=== PATIENT | male | born 1945 | race Caucasian/White ===

== ENCOUNTER 2020-05-15 04:24 | Emergency (ER) | payer MEDICARE, MEDICAID, SELFPAY ==
--- NOTE | ~2020-05-15 | XR_ITS ---
EXAMINATION: XR chest 1V portable DATE: 05/15/2020 05:02 INDICATION: Chest pain. TECHNIQUE: A single frontal view of the chest was obtained. COMPARISON: Chest 2 views 11/02/2016 FINDINGS: The patient is rotated to his left. A calcified right lung nodule and calcified right hilar lymph nodes are consistent with old granulomatous disease. No pleural effusion or pneumothorax. The heart size is normal. There is a prominent left paracardial fat pad. There is a left chest wall pacer with leads in the right atrium and right ventricle. IMPRESSION: 1. No acute cardiopulmonary disease. Reviewed, dictated and finalized at location A.
--- NOTE | ~2020-05-15 | CT_ITS ---
EXAMINATION: CT brain wo con DATE: 05/15/2020 05:17 INDICATION: Headache. TECHNIQUE: Computed tomography (CT) of the head was performed without intravenous contrast. The mA wa s adjusted according to patient size. Iterative reconstruction technique was employed. The dose-lengt h product was 681.00 mGy-cm. COMPARISON: Head CT 11/02/2016 FINDINGS: There is diffuse brain volume loss with a frontal and temporal lobe predominance. There are scattered areas of low attenuation in the cerebral white matter. There is no intracranial hemorrhage , acute infarction, or abnormal intracranial mass lesion. The ventricles are normal in size. There is mild mucosal thickening in the ethmoid sinuses. The mastoid air cells are normal. There are likely c hanges of ocular lens replacement surgeries. IMPRESSION: 1. Stable mild nonspecific cerebral white matter disease, which likely represents chronic small vesse l ischemic disease. Reviewed, dictated and finalized at location A. IMPRESSION: 1. Stable mild nonspecific cerebral white matter disease, which likely represen ts chronic small vessel ischemic disease.
[2020-05-15 04:25] VITALS: BP 158/88; PULSE 69; RESP 18; TEMP 36.8; O2SAT 100
[2020-05-15 04:33] VITALS: BP 158/88; PULSE 70; RESP 21; TEMP 36.8; O2SAT 100
--- NOTE | 2020-05-15 04:34 | PC.NURSE ---
Pt presents to ED with complaints of headache that has been persistent since yesterday morning. Pt states it feels like my head is going to burst . Pt denies being tx for pain lpta. Pt is alert and oriented x4 and vitals are stable. Pt also complains of excessive belching that onset approx one year ago. Pt alert and oriented x4 and breathing is unlabored and even. Pt advised to press call button for assistance.
--- NOTE | 2020-05-15 05:11 | ED.HA ---
HPI - Headache General Chief Complaint: Headache Stated Complaint: headache Time Seen by Provider: 05/15/20 04:51 Source: patient and EMS Mode of arrival: EMS Limitations: no limitations History of Present Illness HPI Narrative: Patient is a 74-year-old male complaining of a headache, generalized, throbbing, 9 out of 10, started yesterday. Patient denies any fever or chills. Patient denies any speech or visual disturbance, weakness, numbness, neck pain or stiffness. Related Data Allergies Allergy/AdvReac Type Severity Reaction Status Date / Time sulfur dioxide Allergy Intermediate Verified 01/16/12 10:54 Sulfa (Sulfonamide Allergy Unknown Verified 04/27/12 11:21 Antibiotics) Review of Systems Review of Systems: All systems reviewed & are unremarkable except as noted in HPI and below Constitutional: Constitutional: Denies body ache(s), Denies chills, Denies excessive sweating, Denies fatigue, Denies fever(s), Denies headache(s), Denies lethargy, Denies malaise, Denies weakness and Denies weight loss Eyes: Eyes: Denies blurry vision, Denies change in vision and Denies loss of vision ENT: Denies dizziness, Denies ear discharge, Denies headache(s), Denies lip swelling, Denies epistaxis, Denies nasal congestion, Denies neck pain, Denies throat swelling and Denies tongue swelling Cardiovascular: Cardiovascular: Denies chest pain, Denies chest pain at rest, Denies chest pain with activity, Denies diaphoresis, Denies rapid heart rate, Denies edema, Denies irregular heart rhythm, Denies lightheadedness, Denies palpitations, Denies dyspnea and Denies dyspnea on exertion Respiratory: Respiratory: Denies chest congestion, Denies cough, Denies hemoptysis, Denies dyspnea and Denies dyspnea on exertion Gastrointestinal: Gastrointestinal: Denies abdominal pain, Denies melena, Denies hematochezia, Denies diarrhea, Denies nausea, Denies vomiting and Denies hematemesis Musculoskeletal: Musculoskeletal: Denies abnormal gait, Denies deformity, Denies joint swelling, Denies limited range of motion, Denies neck pain and Denies numbness Neurologic: Denies Abnormal speech present, Denies abnormal gait, Denies confusion, Denies dizziness, Denies focal weakness, Denies loss of vision, Denies numbness, Denies Other visual disturbances, Denies Sensory deficit (Neuro) and Denies weakness Psychiatric: Psychiatric: Denies confusion, Denies depression, Denies auditory hallucinations, Denies homicidal ideation and Denies suicidal ideation Endocrine: Endocrine: Denies cold intolerance, Denies excessive sweating, Denies fatigue, Denies heat intolerance and Denies palpitations Hematologic/Lymphatic: Hematologic/Lymphatic: Denies easy bleeding and Denies easy bruising Allergic/Immunologic: Allergic/Immunologic: Denies lip swelling, Denies throat swelling and Denies tongue swelling PMFSH Family History Family History Mother Family history of malignant neoplasm Hypertension Father Family history of malignant neoplasm of brain Depression Hypertension Sibling Asthma Family history of malignant neoplasm Social History Social History Smoking status: Never smoker Second hand tobacco smoke exposure: No Alcohol intake: never Exam Const: General: cooperative, comfortable, no acute distress, well developed, alert and awake; No confusion Nutritional Appearance: obese Orientation/consciousness: oriented to person, oriented to place, oriented to time, patient oriented x3 and No confusion Limitations: no limitations HENMT: Head: normal to inspection, normocephalic and atraumatic Ears: hearing grossly normal bilaterally, TM normal on the right and TM normal on the left General nose exam: Normal external nose present, Normal nares present and No nasal discharge present Face and sinus: normal facial exam Mouth: Yes Normal oral and palatal
[2020-05-15 05:30] LABS: Basophils Percent Auto 0.3 % (0.2-1.2); Eosinophils Absolute Auto 0.1 K/mm3 (0-0.3); Eosinophils Percent Auto 0.5 % (0-4.4); Hematocrit 44.4 % (42.0-52.0); Hemoglobin 14.5 g/dL (14.0-18.0); Immature Granulocyte Absolute 0.04 K/mm3 (0.00-0.031); Immature Granulocyte Percent A 0.4 % (0-0.5); Lymphocytes Percent Auto 12.6 % (18.3-44.2); Mean Corpuscular HGB Conc 32.7 g/dl (32-36); Mean Corpuscular Hemoglobin 27.8 pg (26-34); Mean Corpuscular Volume 85.1 fl (80-100); Mean Platelet Volume 9.4 fl (7.4-10.4); Monocytes Absolute Auto 0.6 K/mm3 (0.1-0.6); Monocytes Percent Auto 6.2 % (2.6-8.5); Neutrophils Absolute Auto 7.6 K/mm3 (1.3-6.7); Platelet Count Result 159 k/mm3 (150-375); Red Blood Count 5.22 M/mm3 (4.6-6.20); Red Cell Distribution Width 16.6 % (11.5-14.5); White Blood Count 9.5 K/mm3 (4.5-10.0)
[2020-05-15 05:46] LABS: Alanine Aminotransferase 10 U/L (4-50); Albumin Level 3.5 g/dL (3.5-5.1); Alkaline Phosphatase 57 U/L (38-126); Anion Gap 2 mmol/L (8-16); Aspartate Amino Transferase 15 U/L (17-59); Bilirubin,Total 0.5 mg/dL (0.2-1.3); Blood Urea Nitrogen 17 mg/dL (9-20); Calcium 9.2 mg/dL (8.4-10.2); Carbon Dioxide 32 mmol/L (22-30); Chloride 100 mmol/L (98-107); Estimated CRCL calculation 76 ml/min; Estimated Glomerular Filt Rate > 60; Glucose 124 mg/dL (75-110); Potassium 3.9 mmol/L (3.4-5.0); Sodium 134 mmol/L (137-145)
[2020-05-15 05:48] LABS: INR 0.9; Partial Thromboplastin Time 24.3 SECONDS (22.3-36.8); Prothrombin Time 12.7 Seconds (11.1-14.7)
[2020-05-15 05:58] LABS: Troponin I < 0.012 ng/mL (0.000-0.034)
--- NOTE | 2020-05-15 07:07 | PC.NURSE ---
This RN and Tracy RN assumed care at this time.
[2020-05-15] MEDS: diazePAM (*CRX) 5 MG TABLET PO (07:11)
--- NOTE | 2020-05-15 07:31 | PC.NURSE ---
made contact with [employer] and [facility]. med poth accepted with an eta of [phone]. Made contact with [facility] to transfer patient back to [facility] center. eta [phone]. i did call [employer] and cancelled transportation
--- NOTE | 2020-05-15 07:54 | PC.NURSE ---
[facility] has arrived
[2020-05-15 08:00] VITALS: BP 157/85; PULSE 70; RESP 18; O2SAT 99
== END 2020-05-15 08:11 ==
PROVIDERS: Emergency Provider Emergency Medicine; PCP Family Medicine
DX: R51.9 Headache, unspecified (principal); R07.9 Chest pain, unspecified
CPT/HCPCS: 36415; 70450; 71045; 80053; 84484; 85025; 85610; 85730; 99284; A9270

== ENCOUNTER 2020-08-27 10:30 | Inpatient (IN) | payer MEDICARE, MEDICAID, SELFPAY ==
[2020-08-27] VITALS (14 sets, daily range): BP systolic 127–153; BP diastolic 54–93; PULSE 66–85; RESP 16–22; TEMP 36.3–36.9; O2SAT 97–100; BMI 54.5
--- NOTE | ~2020-08-27 | CT_ITS ---
EXAMINATION: CTA chest PE protocol DATE: 08/27/2020 14:17 INDICATION: Shortness of breath and lower limb swelling TECHNIQUE: Computed tomography angiography (CTA) of the chest was performed with 100 mL Omnipaque-350 intravenous contrast timed to evaluate the pulmonary arteries. Coronal maximum intensity projection 3D-reconstructions were created by the technologist. The dose-length product (DLP) was 1108.00 mGy-cm . Automated exposure control and iterative reconstruction technique were employed. COMPARISON: None. FINDINGS: The pulmonary arteries are well-opacified. Sensitivity for embolism is limited by respirato ry motion artifact. No central pulmonary embolus is identified. Cardiomegaly is noted. There is mild dependent atelectasis. A 6 mm nodule is present in the left upper lobe. There is a calcified nodule o f the right upper lobe, consistent with old granulomatous disease. There are no pathologically enlarg ed thoracic lymph nodes. Bilateral gynecomastia is noted. Punctate calcifications in an otherwise nor mal spleen likely represent healed granulomatous disease. The gallbladder is surgically absent. There is a 4.6 cm mass in the head of the pancreas. There are innumerable low-attenuation lesions of the l iver. There are surgical changes of the stomach. IMPRESSION: 1. No central pulmonary embolus identified, sensitivity for subsegmental emboli limited by respirator y motion artifact. 2. Cardiomegaly. 3. Pancreatic head mass with multiple liver lesions, most consistent with pancreatic adenocarcinoma a nd liver metastases. 4. 6 mm nodule of the left upper lobe which may be benign or metastatic. Reviewed, dictated and finalized at location A. IMPRESSION: 1. No central pulmonary embolus identified, sensitivity for subsegmental emboli limited by respiratory motion artifact. 2. Cardiomegaly. 3. Pancreatic head mass with multiple liver lesions, most consistent with pancr eatic adenocarcinoma and liver metastases. 4. 6 mm nodule of the left upper lobe which may be benign or metastatic.
--- NOTE | ~2020-08-27 | XR_ITS ---
EXAMINATION: XR chest 1V portable INDICATION: Shortness of breath TECHNIQUE: Portable AP chest at 1118 hours COMPARISON: 05/15/2020 FINDINGS: The lung volumes are low. The lungs are free of acute opacities. There is no pleural effusi on or pneumothorax. The heart size is normal. A dual-lead cardiac pacemaker of the left chest wall en ds with leads in expected locations. 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 IMPRESSION: 1. No acute cardiopulmonary abnormality. Reviewed, dictated and finalized at location A.
--- NOTE | ~2020-08-27 | CT_ITS ---
EXAMINATION: CT abdomen pelvis w con DATE: 08/30/2020 11:30 INDICATION: Abdominal pain following liver biopsy TECHNIQUE: Computed tomography (CT) of the abdomen and pelvis was performed with 100 cc Omnipaque 350 intravenous contrast. Automated exposure control and iterative reconstruction technique were employe d. Exam dose: 1668.56 mGy-cm total exam DLP. COMPARISON: 08/30/2020 ultrasound-guided liver biopsy FINDINGS: No pneumothorax. Lung bases are clear of infiltrate or consolidation. Cardiomegaly. Right atrial and right ventricular pacemaker leads. No pericardial or pleural effusion. The liver is studded with ill-defined masses consistent with extensive metastatic disease. Multiple calcified splenic granulomas. Postoperative change of the stomach Status post cholecystectomy. Possible 2.8 cm right adrenal myelolipoma. Up to approximately 4.3 cm pancreatic head mass is seen pancreatic carcinoma. Nonspecific exophytic 1.6 cm upper pole left renal hypoattenuating lesion and several additional up t o 2 cm hypoattenuating lesions of the lower pole of the left kidney. At least one similar approximate ly 11 mm hypoattenuating lesion of the lower right kidney. Normal caliber of the abdominal aorta. No abdominal aortic aneurysm. No intraperitoneal or retroperitoneal or pelvic mass lesion or adenopathy or ascites. The urinary bladder is unremarkable. Moderate prominence of the prostate gland. No bowel obstruction or intraperitoneal free air is detected. Old healed left rib fractures. Diffuse osteopenia. Degenerative changes of the thoracic and lumbar sp ine including diffuse idiopathic skeletal hyperostosis of the thoracic spine and severe degenerative disc disease at L4-5 and L5-S1. IMPRESSION: Pancreatic head mass suggesting pancreatic cancer The liver is studded with metastatic lesions Nonspecific bilateral renal masses Reviewed, dictated and finalized at Location A. Reviewed, dictated and finalized at location A.
--- NOTE | ~2020-08-27 | US_ITS ---
EXAMINATION: US biopsy liver DATE: 08/30/2020 11:40 INDICATION: Multiple liver lesions and massive pancreas concerning for metastatic pancreas cancer. TECHNIQUE: The procedure including the risks and benefits was discussed with the patient. Risks discu ssed included bleeding and infection. The patient understood the risks and agreed to proceed. The sk in overlying the caudal tip of the right hepatic lobe was prepped and draped in usual sterile fashion . Anesthetic was administered with 1% lidocaine subcutaneously. An 18 gauge core biopsy needle was advanced under continuous ultrasound observation to one of the lesion of interest. 4 core biopsy spe cimens were obtained. The needle was removed and the entry site was cleaned and dressed. Post proced ure ultrasound demonstrated no hemorrhage. Approximately 10 minutes following the procedure the patie nt complained of extreme right upper quadrant pain rated 10/10. Returned to the patient who appeared agitated. Patient was saturating 98% oxygenation on room air. Repeat ultrasound imaging at that time demonstrated no evident abdominal wall or perihepatic hematoma. I completed the patient to the [facility] where the contrast enhanced CT was obtained which similarly demonstrated no evident acute abnorm ality but which be dictated separately. The patient displayed was returned to the floor for pain maximilian gemlorrie. FINDINGS: Ultrasound images demonstrate patchy needle advanced into an approximately 1.5 similar hypo echoic nodule at the caudal aspect of the right hepatic lobe. IMPRESSION: 1. Successful Ultrasound-guided biopsy of one of numerous small scattered hypoechoic hepatic lesions suspicious for metastatic disease. Reviewed, dictated and finalized at location A. IMPRESSION: 1. Successful Ultrasound-guided biopsy of one of numerous small scattered hypoe choic hepatic lesions suspicious for metastatic disease.
--- NOTE | ~2020-08-27 | CT_ITS ---
EXAMINATION: CT abdomen pelvis w con DATE: 08/31/2020 09:56 INDICATION: Abdominal pain and distention, belching after liver biopsy TECHNIQUE: Computed tomography (CT) of the abdomen and pelvis was performed with 100 cc Omnipaque 350 intravenous contrast. Automated exposure control and iterative reconstruction technique were employe d. Exam dose: 1676.85 mGy-cm total exam DLP. COMPARISON: 08/30/2020 CT abdomen pelvis FINDINGS: There is dependent mild right lower lobe atelectasis and small right pleural effusion. Ther e is minimal dependent left lower lobe atelectasis. Prominent cardiomegaly. Right atrium and right ventricular pacemaker leads. No pericardial effusion. There is minimal perihepatic and a greater amount of perisplenic and left greater than right paracoli c gutter fluid, new finding since 08/30/2020. Attenuation of the fluid measures in the mid 20 Hounsfie ld unit range. The liver is studded throughout with metastases Numerous splenic and occasional hepatic calcified granulomas consistent with old granulomatous diseas e. 4 cm mass in the pancreatic head suspicious for pancreatic cancer. Unremarkable adrenal glands. Bilateral renal cysts measuring up to 2.4 cm. There are several pinpoint nonobstructing renal calculi. No ureteral calculus or hydroureteronephrosi s. Prostatomegaly. The urinary bladder is unremarkable. Normal caliber of the abdominal aorta. No intraperitoneal or retroperitoneal or pelvic mass lesion or adenopathy. There is gaseous distention of multiple small bowel segments and colon suggesting adynamic ileus. Old healed left rib fractures. No suspicious osteolytic or osteoblastic lesions are identified. IMPRESSION: Interval development of mild intra-abdominal free fluid, including a minimal amount ruth cent to the liver, a greater amount adjacent to the spleen and in the left paracolic and to a lesser extent right paracolic gutters. There is suggestion of some irregularity and focal relative diminished enhancement of the anterior sp sudeep; possible splenic laceration is suggested Probable adynamic ileus, with multiple nondilated gas distended small and large bowel segments Reviewed, dictated and finalized at [facility]. Reviewed, dictated and finalized at location [facility]. IMPRESSION: Interval development of mild intra-abdominal free fluid, including a minimal amount adjacent to the liver, a greater amount adjacent to the splee n and in the left paracolic and to a lesser extent right paracolic gutters. There is suggestion of some irregularity and focal relative diminished enhancem ent of the anterior spleen; possible splenic laceration is suggested Probable adynamic ileus, with multiple nondilated gas distended small and large bowel segments
--- NOTE | ~2020-08-27 | US_ITS ---
EXAMINATION: US venous doppler LE RT DATE: 08/27/2020 11:35 INDICATION: Right lower limb swelling TECHNIQUE: Serrano scale images without and with compression and Doppler images of the right lower extre mity veins were obtained. COMPARISON: None FINDINGS: The there is deep venous thrombosis of the right common femoral vein, profunda femoral vein , femoral vein, popliteal vein, peroneal trunk, posterior tibial veins, and greater saphenous vein. IMPRESSION: 1. Deep venous thrombosis throughout the visualized right lower extremity veins. These findings were discussed with Dr. Galvan in the Emergency Department at 1159 hours on 08/28/19 21. Reviewed, dictated and finalized at location [facility]. IMPRESSION: 1. Deep venous thrombosis throughout the visualized right lower extremity veins . These findings were discussed with Dr. Galvan in the Emergency Department at 1159 hours on 08/27/2020.
--- NOTE | 2020-08-27 11:08 | ECG_ITS ---
Measurements Intervals [place] Rate: 74 P: 171 DE: 160 QRS: 146 QRSD: 174 T: -19 QT: 452 QTc: 503 Interpretive Statements ELECTRONIC VENTRICULAR PACEMAKER WITH INHIBITION BORDERLINE ST-T WAVE ABNORMALITY- HIGH LATERAL LEADS BASELINE ARTIFACT- I, II, III, AVR, AVL, AVF, V1-V6 NO FURTHER INTERPRETATION IS POSSIBLE BORDERLINE ECG Electronically Signed On 08-27-2020 12:46:59 CDT by Man Zamora D.O.
--- NOTE | 2020-08-27 11:25 | PC.NURSE ---
pt in ultrasound dept. unable to do ekg at this time. aware
[2020-08-27 12:28] LABS: Lactic Acid Reflex 0.7 mmol/L (0.7-2.1)
[2020-08-27 12:28] LABS: Basophils Percent Auto 0.3 % (0.2-1.2); Eosinophils Absolute Auto 0.1 K/mm3 (0-0.3); Eosinophils Percent Auto 1.2 % (0-4.4); Hematocrit 38.2 % (42.0-52.0); Immature Granulocyte Absolute 0.03 K/mm3 (0.00-0.031); Immature Granulocyte Percent A 0.3 % (0-0.5); Lymphocytes Percent Auto 13.8 % (18.3-44.2); Mean Corpuscular HGB Conc 31.4 g/dl (32-36); Mean Corpuscular Hemoglobin 26.8 pg (26-34); Mean Corpuscular Volume 85.3 fl (80-100); Mean Platelet Volume 9.5 fl (7.4-10.4); Monocytes Absolute Auto 0.8 K/mm3 (0.1-0.6); Neutrophils Absolute Auto 6.5 K/mm3 (1.3-6.7); Neutrophils Percent Auto 75.4 % (45.5-73.1); Platelet Count Result 203 k/mm3 (150-375); Red Blood Count 4.48 M/mm3 (4.6-6.20); Red Cell Distribution Width 16.1 % (11.5-14.5); White Blood Count 8.7 K/mm3 (4.5-10.0)
[2020-08-27 12:31] LABS: Prothrombin Time 13.3 Seconds (11.1-14.7)
[2020-08-27 12:32] LABS: Partial Thromboplastin Time 26.8 SECONDS (22.3-36.8)
[2020-08-27 13:13] LABS: Alanine Aminotransferase 14 U/L (4-50); Alkaline Phosphatase 88 U/L (38-126); Anion Gap 4 mmol/L (8-16); Aspartate Amino Transferase 34 U/L (17-59); Bilirubin,Total 0.6 mg/dL (0.2-1.3); Blood Urea Nitrogen 16 mg/dL (9-20); CRP 7.4 mg/dL (<1.0); Carbon Dioxide 25 mmol/L (22-30); Chloride 104 mmol/L (98-107); Estimated CRCL calculation 94 ml/min; Estimated Glomerular Filt Rate > 60; Glucose 93 mg/dL (65-110); Potassium 4.5 mmol/L (3.4-5.0); Sodium 133 mmol/L (137-145)
[2020-08-27 13:14] LABS: NT Pro B Type Natriuretic Pept 1990 pg/mL (5-100)
[2020-08-27] MEDS: HEPARIN SODIUM 5,000 UNITS/ML VIAL 10000 UNITS IV PUSH (13:37)
--- NOTE | 2020-08-27 13:52 | PC.NURSE ---
Pt. wanted spouse called to be made aware being admitted. Called number in chart, no answer, unable to leave message.
[2020-08-27 14:01] LABS: Add Urine Microscopic? YES; Appearance Urine Clear (Clear); Bilirubin Urine Negative (Negative); Color Urine Yellow (Yellow); Glucose Urine UA Negative (Negative); Ketones Urine Negative (Negative); Leukocyte Esterase Ur Trace LEU/UL (Negative); Mucus Urine Rare /lpf; Nitrate Urine Negative (Negative); Protein Urine Negative (Negative); RBC Urine 0-2 /hpf (0-2); Specific Grav Ur 1.017 (1.001-1.035); Squamous Epithelial Cell Urine Occasional /hpf (Few); Urobilinogen Urine Negative mg/dL (<2.0)
[2020-08-27 14:11] LABS: Blood Urine Negative (Negative)
[2020-08-27] MEDS: HEPARIN SOD/D5W 100 UNITS/ML 25,000 UNITS/250 ML BAG 15 UNITS IV CONT (14:34)
--- NOTE | 2020-08-27 16:07 | ED.GENADULT ---
HPI - General Adult General Chief complaint: Extremity Problem,Nontraumatic <CLAUDIO Barkley Last Filed: 08/27/20 16:19> Stated complaint: RLE edema <CLAUDIO Barkley Last Filed: 08/27/20 16:19> Time Seen by Provider: 08/27/20 11:10 <CLAUDIO Barkley Last Filed: 08/27/20 16:19> Source: patient and RN notes reviewed <CLAUDIO Barkley Last Filed: 08/27/20 16:19> Mode of arrival: ambulatory <CLAUDIO Barkley Last Filed: 08/27/20 16:19> Limitations: no limitations <CLAUDIO Barkley Last Filed: 08/27/20 16:19> History of Present Illness HPI narrative: Patient is a 74-year-old male who presents to emergency department for evaluation of right leg pain and swelling for the last 2 weeks patient notes that he has been in bed during this duration patient ambulates a little but is ambulatory at home lives there with his . Patient denies any chest pain lightheadedness dizziness dyspnea. Patient on arrival is in no distress presents per EMS. Patient notes tender swollen right leg patient states he has a history of pulmonary embolus. Patient notes that he is currently on warfarin has been compliant with his medication <CLAUDIO Barkley Last Filed: 08/27/20 16:19> Related Data Home medications: Home Medications Medication Instructions Recorded Confirmed amiodarone DAILY 08/27/20 bupropion HCl mg PO DAILY 08/27/20 diltiazem HCl PO BID 08/27/20 docusate sodium [Colace] 100 mg PO BID 08/27/20 duloxetine mg PO DAILY 08/27/20 furosemide DAILY 08/27/20 hydrocodone-acetaminophen See Rx Instructions .ROUTE 08/27/20 .COMPLEX PRN levothyroxine 100 mcg PO DAILY 08/27/20 magnesium oxide mg BID 08/27/20 medroxyprogesterone [Provera] 10 mg PO DAILY 08/27/20 polyethylene glycol 3350 [Miralax] DAILY 08/27/20 potassium chloride 10 meq PO DAILY 08/27/20 trazodone HS 08/27/20 <CLAUIDO Barkley Last Filed: 08/27/20 16:19> Allergies/adverse reactions: Allergies Allergy/AdvReac Type Severity Reaction Status Date / Time Sulfa (Sulfonamide Allergy Unknown Unknown Verified 08/27/20 11:15 Antibiotics) <Jayjay Tucker PA-C - Last Filed: 08/27/20 16:19> Review of Systems Review of Systems: All systems reviewed & are unremarkable except as noted in HPI and below <Jayjay Tucker PA-C - Last Filed: 08/27/20 16:19> [facility] Past Medical History Medical History: Medical History (Updated 08/27/20 @ 16:19 by Jayjay Tucker PA-C) Morbid obesity Pulmonary embolism Warfarin anticoagulation <Jayjay Tucker PA-C - Last Filed: 08/27/20 16:19> Family History Family History: Family History Mother Family history of malignant neoplasm Hypertension Father Family history of malignant neoplasm of brain Depression Hypertension Sibling Asthma Family history of malignant neoplasm <Jayjay Tucker PA-C - Last Filed: 08/27/20 16:19> Social History Social History: Social History Smoking status: Never smoker Second hand tobacco smoke exposure: No Alcohol intake: never Substance use: never Gender identity (if verbalized by the patient): Male Spiritual care concerns: No <Jayjay Tucker PA-C - Last Filed: 08/27/20 16:19> Exam Narrative: Exam Narrative: GENERAL: Well-appearing, morbid obesity, and in no acute distress. HEAD: Normocephalic, atraumatic. EYES: PERRLA and EOMI. ENT: Nares clear, no rhinorrhea or epistaxis. Mucous membranes moist. CHEST: Clear to auscultation. No respiratory distress. No wheezes rales or rhonchi HEART: Regular rate and rhythm. No murmur heard. Normal peripheral pulses. ABDOMEN: Soft, nontender, nondistended, EXTREMITIES: Patient with swelling and pink discoloration of the right leg from the groin down to the level of the foot w
--- NOTE | 2020-08-27 17:15 | PC.NURSE ---
call and fax sbar to imu at this time
--- NOTE | 2020-08-27 18:01 | ADMGEN ---
This patient, Issac Nino, was admitted to IMU Room 212-01. Patient/family oriented to hospital policies and general routines including ID bracelet, bed and alarms, visiting hours, pain management, procedures, bathroom and other care routines, personal items, smoking policy, room service/diet, and visiting hours. Information on how to activate the Rapid Response Team has been discussed. Patient/Family are encouraged to report perceived risks to care and to ask questions if they do not understand what they are told or what they should do.
[2020-08-27 21:43] LABS: INR 1.1; Prothrombin Time 13.6 Seconds (11.1-14.7)
[2020-08-27] MEDS: HEPARIN SODIUM 5,000 UNITS/ML VIAL 8500 UNITS IV PUSH (21:50)
[2020-08-27 22:20] LABS: Glucose Point of Care 111 mg/dl (65-105)
--- NOTE | 2020-08-27 22:45 | PM.IMHP ---
H&P: HPI History of Present Illness Date/Time: 08/27/20 22:45 This is a 74-year-old male patient who tells me comes from [facility]. The patient has a history of DVTs and PEs and stated that he has not been taking his Coumadin he is not sure why. The patient came to the emergency department for evaluation of right leg pain and swelling that is been occurring over the last 2 weeks. The patient has not been able to ambulate at all. He denied any chest pain or lightheadedness. He also has a history of having a pulmonary emboli. Patient's INR is 1.1. Venous Doppler was read as deep vein thrombosis throughout the visualized right lower extremity veins. ED provider called the vascular surgeon at [facility] who recommended that the patient could stay here and be on heparin drip. A CTA was performed as well and was read as no central pulmonary emboli identified, sensitivity for subsegmental emboli limited by respiratory motion artifact. Cardiomegaly. Pancreatic head mass with multiple liver lesions, most consistent with pancreatic adenocarcinoma and liver metastasis. 6 mm nodule the left upper lobe which may be benign or metastasis. The patient was started on heparin drip. H&H 12.0 in 38.2. BNP was noted to 1990. Albumin 3.0. Patient admitted to observation on the date of service of 08/27/2020. Chief Complaint: edema to lower ext Review of Systems Review of Systems: All systems reviewed & are unremarkable except as noted in HPI and below Constitutional: Constitutional: Reports as per HPI and Reports no additional constitutional complaints Eyes: Eyes: Reports as per HPI and Reports no additional eye complaints ENT: Reports system reviewed and no additional complaints, except as documented and Reports Normal hearing present Cardiovascular: Cardiovascular: Reports no additional cardiovascular complaints Respiratory: Respiratory: Reports no additional respiratory complaints and Reports no additional respiratory complaints Gastrointestinal: Gastrointestinal: Reports as per HPI and Reports no additional gastrointestinal complaints Musculoskeletal: Musculoskeletal: Reports no additional musculoskeletal complaints Integumentary/Breasts: Skin/Breast: Reports system reviewed and no additional complaints, except as docu and Reports as per HPI Neurologic: Reports system reviewed and no additional complaints, except as documented, Reports as per HPI and Reports Normal hearing present Psychiatric: Psychiatric: Reports no additional psychiatric complaints and Reports as per HPI Endocrine: Endocrine: Reports no additional endocrine complaints Hematologic/Lymphatic: Hematologic/Lymphatic: Reports no additional hematologic/lymphatic complaints Allergic/Immunologic: Allergic/Immunologic: Reports no additional allergic/immunologic complaints PMFSH Past Medical History Medical History (Updated 08/27/20 @ 22:56 by Malissa Rothman NP) Asthma Atrial fibrillation Congestive heart failure GERD without esophagitis Hypertension Hypothyroidism Lower GI bleed Morbid obesity Obstructive sleep apnea Pacemaker Pulmonary embolism Warfarin anticoagulation Surgical History Surgical History (Updated 08/27/20 @ 22:53 by Malissa Rothman NP) H/O colonoscopy H/O local excision of skin lesion History of appendectomy History of back surgery History of gastric stapling Hx of cholecystectomy Family History Family History Mother Family history of malignant neoplasm Hypertension Father Family history of malignant neoplasm of brain Depression Hypertension Sibling Asthma Family history of malignant neoplasm Social History Social History (Updated 08/27/20 @ 22:55 by Malissa Rothman NP) Social History: the patient tells me that 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 The patient is listed as a full code. Patient has 3 children. The patien
[2020-08-27] MEDS: traZODone HCL 50 MG TABLET 100 MG PO (23:44)
[2020-08-28] VITALS (16 sets, daily range): BP systolic 115–161; BP diastolic 49–84; PULSE 70–95; RESP 17–22; TEMP 36.1–36.9; O2SAT 96–100
--- NOTE | 2020-08-28 | ECHO_ITS ---
Patient Info Name: Issac Nino Age: 74 years : 1945 Gender: Male Ht: 68 in Wt: 358 lbs BSA: 2.89 m2 HR: 53 bpm BP: 133 / 84 mmHg Heart Rhythm: Indeterminant Technical Quality: Good Exam Date: 08/28/2020 9:24 AM Exam Location: [facility] Patient Status: Outpatient Admit Date: 08/27/2020 Staff Ordering Physician: Malissa Rothman NP Seam Stay Stitcher: Jonnathan Morin RDCS, RT Attending Provider: Mitra Mc PA-C Referring Physician: Lorna SALAZAR; Exam Type: CA echo dop color flow w con Study Info Indications I50.9 - Heart failure, unspecified Complete two-dimensional, color flow and Doppler transthoracic echocardiogram is performed with contrast to opacify the left ventricle and to improve the deliniation of the left ventricle endocardial borders. Summary 1. Technically difficult study with limited views despite Definity echo contrast enhancement. 2. Left ventricular systolic function is normal, estimated at 65-70%. 3. There is moderate to severe concentric increased left ventricular wall thickness with sigmoid hypertrophy. 4. The left ventricular diastolic function is indeterminate. 5. Right atrial chamber dimension is severely enlarged. 6. Left atrial chamber dimension is severely enlarged. 7. Mild pulmonary hypertension, estimated pulmonary arterial systolic pressure is 35 mmHg. 8. There is mild tricuspid valve regurgitation. 9. There is a small pericardial effusion with fibrinous material within the pericardial space. 10. Epicardial fat pad is evident.. Left Ventricle Left ventricular chamber dimension is normal. Left ventricular systolic function is normal, estimated at 65-70%. There is moderate to severe concentric increased left ventricular wall thickness with sigmoid hypertrophy. The left ventricular diastolic function is indeterminate. Technically difficult study with limited views despite Definity echo contrast enhancement. Right Ventricle Right ventricular chamber dimension is normal. Right ventricular systolic function is normal. Linear artifact in right ventricle suggestive of catheter(s), pacemaker lead(s), or ICD lead(s). Left Atria Left atrial chamber dimension is severely enlarged. Right Atria Right atrial chamber dimension is severely enlarged. Linear artifact in the right atrium suggestive of catheter(s), pacemaker lead(s), or ICD lead(s). Aortic Valve The aortic valve is not well visualized. There is no aortic valve stenosis. There is no aortic valve regurgitation. Pulmonic Valve The pulmonic valve is not well visualized. There is trace pulmonic regurgitation. Mitral Valve The mitral valve has normal leaflets. There is mild mitral valve regurgitation. Tricuspid Valve The tricuspid valve leaflets are not well visualized. There is mild tricuspid valve regurgitation. Mild pulmonary hypertension, estimated pulmonary arterial systolic pressure is 35 mmHg. Pericardium/Pleural Epicardial fat pad is evident.. There is a small pericardial effusion with fibrinous material within the pericardial space. Inferior Vena Cava Dilated inferior vena cava with >50% collapse upon inspiration consistent with elevated right atrial pressure, 10 mmHg. Aorta The aortic root size at the sinus of Valsalva is normal. There is mild aortic atherosclerosis. Left Ventricular Outflow Tract Name Value No
[2020-08-28] MEDS: ACETAMINOPHEN 325 MG TABLET 650 MG PO (00:04)
[2020-08-28 04:16] LABS: Basophils Percent Auto 0.4 % (0.2-1.2); Eosinophils Absolute Auto 0.1 K/mm3 (0-0.3); Eosinophils Percent Auto 1.5 % (0-4.4); Hematocrit 35.6 % (42.0-52.0); Hemoglobin 11.5 g/dL (14.0-18.0); Immature Granulocyte Absolute 0.03 K/mm3 (0.00-0.031); Immature Granulocyte Percent A 0.4 % (0-0.5); Lymphocytes Absolute Auto 1.62 K/mm3 (0.9-3.2); Lymphocytes Percent Auto 21.5 % (18.3-44.2); Mean Corpuscular HGB Conc 32.3 g/dl (32-36); Mean Corpuscular Hemoglobin 26.7 pg (26-34); Mean Corpuscular Volume 82.8 fl (80-100); Mean Platelet Volume 9.5 fl (7.4-10.4); Monocytes Absolute Auto 0.6 K/mm3 (0.1-0.6); Monocytes Percent Auto 8.4 % (2.6-8.5); Neutrophils Absolute Auto 5.1 K/mm3 (1.3-6.7); Neutrophils Percent Auto 67.8 % (45.5-73.1); Platelet Count Result 224 k/mm3 (150-375); Red Cell Distribution Width 15.9 % (11.5-14.5); White Blood Count 7.5 K/mm3 (4.5-10.0)
[2020-08-28 04:33] LABS: Partial Thromboplastin Time 81.5 SECONDS (22.3-36.8)
[2020-08-28 04:36] LABS: Alanine Aminotransferase 13 U/L (4-50); Albumin Level 2.9 g/dL (3.5-5.1); Alkaline Phosphatase 98 U/L (38-126); Anion Gap 4 mmol/L (8-16); Aspartate Amino Transferase 24 U/L (17-59); Bilirubin,Total 0.5 mg/dL (0.2-1.3); Blood Urea Nitrogen 13 mg/dL (9-20); Calcium 9.2 mg/dL (8.4-10.2); Carbon Dioxide 26 mmol/L (22-30); Chloride 102 mmol/L (98-107); Estimated CRCL calculation 93 ml/min; Estimated Glomerular Filt Rate > 60; Glucose 95 mg/dL (65-110); Lactic Acid Reflex 0.6 mmol/L (0.7-2.1); Lipase 1442 U/L (23-300); Magnesium 2.3 mg/dL (1.6-2.3); Potassium 3.7 mmol/L (3.4-5.0); Sodium 132 mmol/L (137-145)
[2020-08-28] MEDS: HEPARIN SOD/D5W 100 UNITS/ML 25,000 UNITS/250 ML BAG 19 UNITS IV CONT (05:31)
[2020-08-28] MEDS: LEVOTHYROXINE SODIUM 100 MCG TABLET PO (05:33)
[2020-08-28 06:42] LABS: Thyroid Stimulating Hormone Reflex 0.871 uIU/mL (0.465-4.68)
[2020-08-28] MEDS: PANTOPRAZOLE SODIUM IV 40 MG VIAL IV PUSH ×2 (10:02→21:32)
[2020-08-28] MEDS: POTASSIUM CHLORIDE 10 MEQ TABLET.ER PO (10:02)
[2020-08-28] MEDS: DULoxetine HCL 60 MG CAPSULE.DR PO (10:03)
[2020-08-28] MEDS: FUROSEMIDE 40 MG TABLET PO (10:03)
[2020-08-28] MEDS: DOCUSATE SODIUM 100 MG CAPSULE PO ×2 (10:03→16:39)
[2020-08-28] MEDS: MAGNESIUM OXIDE 400 MG TABLET PO ×2 (10:03→16:39)
[2020-08-28] MEDS: AMIODARONE HCL 200 MG TABLET PO (10:03)
[2020-08-28] MEDS: NYSTATIN OINTMENT 15 GM TUBE 1 APPLIC TOPICAL ×2 (10:05→16:39)
[2020-08-28] MEDS: buPROPion HCL XL (24 HR) 150 MG TABCR PO (10:06)
[2020-08-28] MEDS: HYDROcodone/acetaminophen (*CRX) 5-325 MG TABLET 1 TAB PO ×3 (10:21→22:21)
--- NOTE | 2020-08-28 10:35 | PM.IMPN ---
Progress Note: A&P Assessment and Plan (1) Deep vein thrombosis of lower extremity: Code(s): I82.409 - Acute embolism and thrombosis of unspecified deep veins of unspecified lower extremity Status: Acute Assessment and Plan: Patient is a 74-year-old man with a history of atrial fibrillation who was on anticoagulation in 2019 but then developed a GI bleed required blood transfusions and since has been discontinued on anticoagulation, who presented to the emergency room from his [facility] with right leg swelling, pain and redness. Vitals showed he was afebrile, non tachycardic, normal respiratory rate and oxygenation on room air, normal blood pressure 132/75. Labs showed normocytic anemia with a hemoglobin of 12, hematocrit 38%, normal platelet count, normal coag panel, slight hyponatremia at 133 which appears to be chronic, normal renal function, normal LFTs, elevated CRP is 7.4, elevated BNP at 1990, elevated lipase at 1448. Urinalysis showing trace leukocyte esterase and WBCs 7-9. urine culture pending. Venous Doppler was completed of right lower leg due to increased redness and swelling which found DVT throughout the visualized right lower extremity veins. CTA of the chest was completed showing no central pulmonary embolus, sensitivity for subsegmental emboli limited by respiratory motion artifact. He was also found to have a pancreatic head mass with multiple liver lesions, most consistent with pancreatic adenocarcinoma and liver metastases. 6 mm nodule of the left upper lobe of the lungs which could be benign verses metastatic. The ER provider called [facility] and talked to a vascular surgeon who recommended the patient to be started on IV heparin, and start on anticoagulation and follow-up with vascular surgery as an outpatient. The patient was admitted into the hospital on a heparin drip, consult to Oncology Dr. Francis, and monitoring of blood counts. Patient continues to have right leg discomfort. P.r.n. Pain medications. Continue IV heparin at this time awaiting oncology consultation. If Oncology would like to in for a with a biopsy this may be able to be completed after we stop heparin drip. If Oncology does not want to move forward with any type of a procedure then we will consider putting him on Eliquis for the treatment of his blood clot. Talked to the patient, granddaughter, extensively about the patient's poor prognosis. He does have a history of GI bleeding 1 year ago which is why he is not on any anticoagulation at this time. If his clot is not going to be treated with anticoagulation then he may need to have an IVC filter. We then discussed his possible underlying cancer and the risks of possible treatment versus no treatment. I also discussed with them possible hospice care. I gave him the risks of bleeding, stroke, heart attack, massive pulmonary embolism, as well as . At this time they agree with the plan with continuing IV heparin, discussing further options with Oncology and will follow-up with them tomorrow. Continue monitoring. (2) Atrial fibrillation: Code(s): I48.91 - Unspecified atrial fibrillation Status: Chronic Assessment and Plan: Patient's heart rate is controlled at this time on his home medications. He was not on any anticoagulation due to his GI bleeding history. Continue monitoring. (3) Mass of pancreas: Code(s): K86.89 - Other specified diseases of pancreas Status: Acute Assessment and Plan: CT of his chest showed pancreatic mass with possible Mets to his liver and possible met to his upper lung. This is a new diagnosis and Dr. Francis oncology was consulted. I talked to him on the phone and he will come see the patient today and talk about the risks of treatment versus no treatment versus hospice. Continue monitorin
[2020-08-28 11:26] LABS: Partial Thromboplastin Time 28.5 SECONDS (22.3-36.8)
[2020-08-28] MEDS: HEPARIN SODIUM 5,000 UNITS/ML VIAL 8500 UNITS IV PUSH (12:20)
[2020-08-28 12:46] LABS: Hematocrit 36.5 % (42.0-52.0); Hemoglobin 11.7 g/dL (14.0-18.0)
--- NOTE | 2020-08-28 12:48 | PDONCCN ---
HPI - Date of Consult Date/Time: 08/28/20 12:48 Requesting Physician: Mitra Mc PA-C Primary Care Provider: Afia Oswald, - Consult Narrative Reason for consult: Likely pancreatic cancer Narrative: Issac Nino is a 74 year old male with morbid obesity, congestive heart failure, atrial fibrillation who has the [facility] resident for last 3 weeks after his discharge from the [facility]. Patient has a history of DVT and PE but was not taking any blood thinner at the time of admission. He came into the ER with right leg swelling and pain for 2 weeks duration. Patient is not able to ambulate much due to his morbid obesity. Doppler studies were performed that showed DVT throughout the right lower extremity. CT chest was also performed that showed no central PE. There was mass in the pancreatic head and multiple liver lesions. There was 6 mm nodule in the left upper lobe could be metastatic disease. He denies any weight loss. Patient does have some right upper abdominal pain. No diarrhea constipation. No other new complaints. Review of Systems - Review of Systems All systems reviewed & are unremarkable except as noted in HPI and bel - Neurologic Reports system reviewed and no additional complaints, except as documented, Reports hearing normal [facility] Medical History: Medical History (Last Updated 08/27/20 @ 22:56 by Malissa Rothman NP) Asthma Atrial fibrillation Congestive heart failure GERD without esophagitis Hypertension Hypothyroidism Lower GI bleed Morbid obesity Obstructive sleep apnea Pacemaker Pulmonary embolism Warfarin anticoagulation Surgical History: Surgical History (Last Updated 08/27/20 @ 22:53 by Malissa Rothman NP) H/O colonoscopy H/O local excision of skin lesion History of appendectomy History of back surgery History of gastric stapling Hx of cholecystectomy Family History: Family History (Last Reviewed 08/27/20 @ 22:54 by Malissa Rothman NP) Mother Family history of malignant neoplasm Hypertension Father Family history of malignant neoplasm of brain Depression Hypertension Sibling Asthma Family history of malignant neoplasm - Social History Social History: Social History (Last Updated 08/27/20 @ 22:55 by Malissa Rothman NP) Gender Identity: Gender identity (if verbalized by the patient): Male Alcohol Use: Alcohol intake: never Substance Use: Substance use: never Others: Spiritual care concerns: No Smoking Status: Smoking status: Never smoker Second hand tobacco smoke exposure: No Meds Home Medications Medication Instructions Recorded Confirmed Type acetaminophen 650 mg PO Q6H PRN 08/27/20 08/27/20 History amiodarone 200 mg PO DAILY 08/27/20 08/27/20 History bupropion HCl 150 mg PO DAILY 08/27/20 08/27/20 History diltiazem HCl 240 mg PO BID 08/27/20 08/27/20 History docusate sodium [Colace] 100 mg PO BID 08/27/20 08/27/20 History duloxetine 60 mg PO DAILY 08/27/20 08/27/20 History furosemide 40 mg PO DAILY 08/27/20 08/27/20 History hydrocodone-acetaminophen 1 tablet PO Q6H PRN 08/27/20 08/27/20 History levothyroxine 100 mcg PO DAILY 08/27/20 08/27/20 History magnesium oxide 400 mg PO BID 08/27/20 08/27/20 History medroxyprogesterone [Provera] 10 mg PO DAILY 08/27/20 08/27/20 History nystatin 1 applic TOPICAL BID 08/27/20 08/27/20 History polyethylene glycol 3350 [Miralax] 17 g PO DAILY 08/27/20 08/27/20 History potassium chloride 10 meq PO DAILY 08/27/20 08/27/20 History trazodone 100 mg PO HS 08/27/20 08/27/20 History triamcinolone acetonide 1 applic TOPICAL BID 08/27/20 08/27/20 History Allergies Allergy/AdvReac Type Severity Reaction Status Date / Time Sulfa (Sulfonamide Allergy Unknown Unknown Verified 08/27/20 11:15 Antibiotics) Results - Labs CBC & Chem 7: 08/28/20 12:22 08/28/20 04:01 Labs: Short CBC 08/28/20 07
[2020-08-28] MEDS: HEPARIN SOD/D5W 100 UNITS/ML 25,000 UNITS/250 ML BAG 23 UNITS IV CONT (18:06)
[2020-08-28 19:36] LABS: Hematocrit 33.8 % (42.0-52.0); Hemoglobin 11.1 g/dL (14.0-18.0)
[2020-08-28 19:49] LABS: Partial Thromboplastin Time 123.3 SECONDS (22.3-36.8)
[2020-08-28] MEDS: traZODone HCL 50 MG TABLET 100 MG PO (21:32)
[2020-08-29] VITALS (14 sets, daily range): BP systolic 126–144; BP diastolic 56–88; PULSE 60–85; RESP 16–22; TEMP 36.3–36.9; O2SAT 95–99
[2020-08-29 02:45] LABS: Hematocrit 33.7 % (42.0-52.0)
[2020-08-29 02:46] LABS: Partial Thromboplastin Time 93.1 SECONDS (22.3-36.8)
[2020-08-29] MEDS: LEVOTHYROXINE SODIUM 100 MCG TABLET PO (06:27)
[2020-08-29] MEDS: HEPARIN SOD/D5W 100 UNITS/ML 25,000 UNITS/250 ML BAG 21 UNITS IV CONT ×2 (06:27→19:59)
[2020-08-29 06:47] LABS: Hematocrit 36.7 % (42.0-52.0); Hemoglobin 11.6 g/dL (14.0-18.0)
[2020-08-29 07:04] LABS: Anion Gap 4 mmol/L (8-16); Blood Urea Nitrogen 14 mg/dL (9-20); CRP 6.5 mg/dL (<1.0); Calcium 8.9 mg/dL (8.4-10.2); Carbon Dioxide 28 mmol/L (22-30); Chloride 101 mmol/L (98-107); Estimated CRCL calculation 85 ml/min; Estimated Glomerular Filt Rate > 60; Glucose 89 mg/dL (65-110); Lipase 1141 U/L (23-300); Potassium 3.9 mmol/L (3.4-5.0); Sodium 133 mmol/L (137-145)
[2020-08-29 08:24] LABS: Partial Thromboplastin Time 74.9 SECONDS (22.3-36.8)
[2020-08-29] MEDS: AMIODARONE HCL 200 MG TABLET PO (09:22)
[2020-08-29] MEDS: POTASSIUM CHLORIDE 10 MEQ TABLET.ER PO (09:23)
[2020-08-29] MEDS: buPROPion HCL XL (24 HR) 150 MG TABCR PO (09:24)
[2020-08-29] MEDS: DULoxetine HCL 60 MG CAPSULE.DR PO (09:24)
[2020-08-29] MEDS: FUROSEMIDE 40 MG TABLET PO (09:24)
[2020-08-29] MEDS: MAGNESIUM OXIDE 400 MG TABLET PO ×2 (09:25→16:12)
[2020-08-29] MEDS: PANTOPRAZOLE SODIUM IV 40 MG VIAL IV PUSH ×2 (09:26→20:05)
[2020-08-29] MEDS: NYSTATIN OINTMENT 15 GM TUBE 1 APPLIC TOPICAL ×2 (09:26→16:12)
[2020-08-29] MEDS: polyethylene glycoL 3350 17 GM POWD.PACK PO (09:26)
[2020-08-29] MEDS: DOCUSATE SODIUM 100 MG CAPSULE PO ×2 (09:31→16:11)
[2020-08-29 12:00] LABS: Hematocrit 36.1 % (42.0-52.0); Hemoglobin 11.4 g/dL (14.0-18.0)
--- NOTE | 2020-08-29 15:17 | PM.IMPN ---
Progress Note: A&P Assessment and Plan (1) Deep vein thrombosis of lower extremity: Code(s): I82.409 - Acute embolism and thrombosis of unspecified deep veins of unspecified lower extremity Status: Acute Assessment and Plan: Patient is a 74-year-old man with a history of atrial fibrillation who was on anticoagulation in 2019 but then developed a GI bleed required blood transfusions and since has been discontinued on anticoagulation, who presented [facility] emergency room from his shelter with right leg swelling, pain and redness. Vitals showed he was afebrile, non tachycardic, normal respiratory rate and oxygenation on room air, normal blood pressure 132/75. Labs showed normocytic anemia with a hemoglobin of 12, hematocrit 38%, normal platelet count, normal coag panel, slight hyponatremia at 133 which appears to be chronic, normal renal function, normal LFTs, elevated CRP is 7.4, elevated BNP at 1990, elevated lipase at 1448. Urinalysis showing trace leukocyte esterase and WBCs 7-9. urine culture pending. Venous Doppler was completed of right lower leg due to increased redness and swelling which found DVT throughout the visualized right lower extremity veins. CTA of the chest was completed showing no central pulmonary embolus, sensitivity for subsegmental emboli limited by respiratory motion artifact. He was also found to have a pancreatic head mass with multiple liver lesions, most consistent with pancreatic adenocarcinoma and liver metastases. 6 mm nodule of the left upper lobe of the lungs which could be benign verses metastatic. The ER provider called [facility] and talked to a vascular surgeon who recommended the patient to be started on IV heparin, and start on anticoagulation and follow-up with vascular surgery as an outpatient. The patient was admitted into the hospital on a heparin drip, consult to Oncology Dr. Francis, and monitoring of blood counts. Patient continues to have right leg discomfort. P.r.n. Pain medications. Continue IV heparin. Plan is for Liver Biopsy for diagnosis of poss Pancreatic cancer. Then plan to switch to PO Eliquis for treatment of his DVT. If H&H Stable consider discharge. Family did discussed with [facility], because the patient and his were considering him going home on hospice. We will talk more tomorrow after his biopsy. Continue monitoring. (2) Atrial fibrillation: Code(s): I48.91 - Unspecified atrial fibrillation Status: Chronic Assessment and Plan: Patient's heart rate is controlled at this time on his home medications. He was not on any anticoagulation due to his GI bleeding history. Continue monitoring. (3) Mass of pancreas: Code(s): K86.89 - Other specified diseases of pancreas Status: Acute Assessment and Plan: CT of his chest showed pancreatic mass with possible Mets to his liver and possible met to his upper lung. This is a new diagnosis and Dr. Francis oncology was consulted and plan for biopsy tomorrow. Continue monitoring. Appreciate oncology is input. (4) Congestive heart failure: Code(s): I50.9 - Heart failure, unspecified Status: Chronic Assessment and Plan: appears to be euvolemic at this time. Continue with Lasix Monitor volume status, blood pressure. (5) Obstructive sleep apnea: Code(s): G47.33 - Obstructive sleep apnea (adult) (pediatric) Status: Chronic Assessment and Plan: Continue CPAP while he is here. (6) Hypertension: Code(s): I10 - Essential (primary) hypertension Status: Chronic Assessment and Plan: Blood pressure is stable at this time 141/64. Continue with Lasix, am
[2020-08-29] MEDS: MORPHINE SULFATE (*CRX) 4 MG/ML INJ IV PUSH ×2 (16:09→20:50)
[2020-08-29] MEDS: traZODone HCL 50 MG TABLET 100 MG PO (20:05)
[2020-08-29] MEDS: HYDROcodone/acetaminophen (*CRX) 5-325 MG TABLET 1 TAB PO (23:55)
[2020-08-30] VITALS (15 sets, daily range): BP systolic 99–158; BP diastolic 51–82; PULSE 70–79; RESP 17–22; TEMP 36.4–36.8; O2SAT 95–100
[2020-08-30] MEDS: MORPHINE SULFATE (*CRX) 4 MG/ML INJ IV PUSH ×4 (03:25→21:57)
[2020-08-30] MEDS: LEVOTHYROXINE SODIUM 100 MCG TABLET PO (06:06)
[2020-08-30 07:39] LABS: Hematocrit 38.4 % (42.0-52.0); Hemoglobin 12.1 g/dL (14.0-18.0)
[2020-08-30 07:50] LABS: INR 0.9; Prothrombin Time 12.3 Seconds (11.1-14.7)
[2020-08-30] MEDS: DULoxetine HCL 60 MG CAPSULE.DR PO (08:58)
[2020-08-30] MEDS: MAGNESIUM OXIDE 400 MG TABLET PO ×2 (08:59→17:25)
[2020-08-30] MEDS: DOCUSATE SODIUM 100 MG CAPSULE PO ×2 (08:59→17:22)
[2020-08-30] MEDS: NYSTATIN OINTMENT 15 GM TUBE 1 APPLIC TOPICAL ×2 (09:02→17:25)
[2020-08-30] MEDS: PANTOPRAZOLE SODIUM IV 40 MG VIAL IV PUSH ×2 (09:02→20:13)
[2020-08-30] MEDS: HYDROCORTISONE 1% 30 GM CREAM 1 APPLIC TOPICAL ×2 (09:02→17:23)
[2020-08-30] MEDS: HYDROcodone/acetaminophen (*CRX) 5-325 MG TABLET 1 TAB PO ×2 (13:55→20:12)
[2020-08-30] MEDS: AMIODARONE HCL 200 MG TABLET PO (13:57)
[2020-08-30] MEDS: FUROSEMIDE 40 MG TABLET PO (13:58)
[2020-08-30] MEDS: buPROPion HCL XL (24 HR) 150 MG TABCR PO (13:58)
[2020-08-30] MEDS: POTASSIUM CHLORIDE 10 MEQ TABLET.ER PO (13:59)
--- NOTE | 2020-08-30 14:02 | ECG_ITS ---
Measurements Intervals [place] Rate: 71 P: [place]: 0 QRS: 81 QRSD: 178 T: 60 QT: 468 QTc: 510 Interpretive Statements ELECTRONIC VENTRICULAR PACEMAKER VENTRICULAR PREMATURE COMPLEX BASELINE ARTIFACT- V3 NO FURTHER INTERPRETATION IS POSSIBLE ATYPICAL ECG Electronically Signed On 08-30-2020 14:24:16 CDT by Man Zamora D.O.
--- NOTE | 2020-08-30 14:06 | PM.IMPN ---
Progress Note: A&P Assessment and Plan (1) Deep vein thrombosis of lower extremity: Code(s): I82.409 - Acute embolism and thrombosis of unspecified deep veins of unspecified lower extremity Status: Acute Assessment and Plan: Patient is a 74-year-old man with a history of atrial fibrillation who was on anticoagulation in 2019 but then developed a GI bleed required blood transfusions and since has been discontinued on anticoagulation, who presented to the emergency room from his senior care with right leg swelling, pain and redness. Vitals showed he was afebrile, non tachycardic, normal respiratory rate and oxygenation on room air, normal blood pressure 132/75. Labs showed normocytic anemia with a hemoglobin of 12, hematocrit 38%, normal platelet count, normal coag panel, slight hyponatremia at 133 which appears to be chronic, normal renal function, normal LFTs, elevated CRP is 7.4, elevated BNP at 1990, elevated lipase at 1448. Urinalysis showing trace leukocyte esterase and WBCs 7-9. urine culture pending. Venous Doppler was completed of right lower leg due to increased redness and swelling which found DVT throughout the visualized right lower extremity veins. CTA of the chest was completed showing no central pulmonary embolus, sensitivity for subsegmental emboli limited by respiratory motion artifact. He was also found to have a pancreatic head mass with multiple liver lesions, most consistent with pancreatic adenocarcinoma and liver metastases. 6 mm nodule of the left upper lobe of the lungs which could be benign verses metastatic. The ER provider called [facility] and talked to a vascular surgeon who recommended the patient to be started on IV heparin, and start on anticoagulation and follow-up with vascular surgery as an outpatient. The patient was admitted into the hospital on a heparin drip, consult to Oncology Dr. Francis, and monitoring of blood counts. Patient continues to have right leg discomfort. P.r.n. Pain medications. IV heparin was discontinued at midnight for a biopsy today. Patient had the biopsy and IR recommended holding Eliquis for 24 hours but we could start him on a heparin drip 6 hours after biopsy was done for the continued treatment of DVT. I talked to Dr. Francis be oncologist who recommended starting IV heparin 6 hours after biopsy and discontinuing tomorrow to restart p.o. Eliquis H&H stable at this time. No acute signs of bleeding. Family did discussed with [facility], and plan is to go back to the senior care for another week until the patient's can get off of work. Then the plan would be to bring the patient home with hospice. Care coordination is going to clarify to see if he is going to the senior care on hospice or get a continue treatment until he is able to go home in a week or so. Continue monitoring. (2) RUQ abdominal pain: Code(s): R10.11 - Right upper quadrant pain Status: Acute Assessment and Plan: The patient developed right upper quadrant abdominal pain which is worse than he has ever experienced after he had his liver biopsy. A CT of his abdomen pelvis was completed by the interventional radiologist who read the CT scan and stated that there was some fluid along the liver which is not uncommon after biopsy, gas in the colon, but no acute abnormality otherwise. Interventional radiologists believe the patient's pain was out of proportion to his CT scan results. Continue with PRN Morphine for pain. he denies any nausea at this time, plus the patient's Qtc interval is prolonged at 500 and would cause worsening QTc. Continue monitoring Pain. (3) Atrial fibrillation: Code(s): I48.91 - Unspecified atrial fibrillation Status: Chronic Assessment and Plan: Patient's heart rate is controlled at this time on his home medicati
--- NOTE | 2020-08-30 16:44 | PC.NURSE ---
1030- pt to ultrasound dept for biopsy; after procedure pt started c/o severe pain RUQ- Dr. Love called- at bedside and ordered CT scan- CT scan completed-; pt returned to room via stretcher@ 1130; VSS- pt belching constantly- pain medication given as ordered. Bandaid to RUQ abdomen dry/intact
[2020-08-30] MEDS: HEPARIN SOD/D5W 100 UNITS/ML 25,000 UNITS/250 ML BAG 15 UNITS IV CONT (17:26)
[2020-08-30] MEDS: traZODone HCL 50 MG TABLET 100 MG PO (20:13)
[2020-08-30] MEDS: BELLADONNA ALK/PHENOB ELIXIR 10 ML PO (21:23)
[2020-08-30] MEDS: MAG HYDROX/AL HYDROX/SIMETH 30 ML UDC PO (21:24)
[2020-08-30] MEDS: LIDOCAINE HCL 2% VISC SOLN 15 ML UDC PO (21:24)
[2020-08-30 22:11] LABS: Hematocrit 41.3 % (42.0-52.0); Hemoglobin 12.9 g/dL (14.0-18.0)
[2020-08-30 22:22] LABS: INR 0.9; Prothrombin Time 12.5 Seconds (11.1-14.7)
[2020-08-30 22:23] LABS: Partial Thromboplastin Time 26.4 SECONDS (22.3-36.8)
[2020-08-31] VITALS (10 sets, daily range): BP systolic 150–155; BP diastolic 71–80; PULSE 68–92; RESP 16–20; TEMP 36.2–36.7; O2SAT 97–98
[2020-08-31] MEDS: HEPARIN SODIUM 5,000 UNITS/ML VIAL 8500 UNITS IV PUSH (00:04)
[2020-08-31] MEDS: ACETAMINOPHEN 325 MG TABLET 650 MG PO (00:04)
[2020-08-31] MEDS: HEPARIN SOD/D5W 100 UNITS/ML 25,000 UNITS/250 ML BAG 19 UNITS IV CONT (00:10)
[2020-08-31 00:17] LABS: Partial Thromboplastin Time 32.7 SECONDS (22.3-36.8)
[2020-08-31] MEDS: HYDROcodone/acetaminophen (*CRX) 5-325 MG TABLET 1 TAB PO (03:39)
[2020-08-31 05:17] LABS: Hemoglobin 13.1 g/dL (14.0-18.0); Mean Corpuscular Hemoglobin 26.7 pg (26-34); Mean Corpuscular Volume 83.7 fl (80-100); Mean Platelet Volume 9.2 fl (7.4-10.4); Platelet Count Result 261 k/mm3 (150-375); Red Cell Distribution Width 15.8 % (11.5-14.5); White Blood Count 12.5 K/mm3 (4.5-10.0)
[2020-08-31 05:28] LABS: Alanine Aminotransferase 22 U/L (4-50); Albumin Level 3.1 g/dL (3.5-5.1); Alkaline Phosphatase 150 U/L (38-126); Anion Gap 6 mmol/L (8-16); Aspartate Amino Transferase 53 U/L (17-59); Bilirubin,Total 1.1 mg/dL (0.2-1.3); Blood Urea Nitrogen 17 mg/dL (9-20); Calcium 9.4 mg/dL (8.4-10.2); Carbon Dioxide 29 mmol/L (22-30); Chloride 95 mmol/L (98-107); Estimated CRCL calculation 85 ml/min; Estimated Glomerular Filt Rate > 60; Glucose 128 mg/dL (65-110); Potassium 3.9 mmol/L (3.4-5.0); Prothrombin Time 12.7 Seconds (11.1-14.7); Sodium 130 mmol/L (137-145)
[2020-08-31 05:30] LABS: Partial Thromboplastin Time 82.5 SECONDS (22.3-36.8)
[2020-08-31] MEDS: LEVOTHYROXINE SODIUM 100 MCG TABLET PO (06:34)
[2020-08-31] MEDS: DOCUSATE SODIUM 100 MG CAPSULE PO (09:14)
[2020-08-31] MEDS: polyethylene glycoL 3350 17 GM POWD.PACK PO (09:14)
[2020-08-31] MEDS: MAGNESIUM OXIDE 400 MG TABLET PO (09:14)
[2020-08-31] MEDS: buPROPion HCL XL (24 HR) 150 MG TABCR PO (09:14)
[2020-08-31] MEDS: AMIODARONE HCL 200 MG TABLET PO (09:15)
[2020-08-31] MEDS: FUROSEMIDE 40 MG TABLET PO (09:15)
[2020-08-31] MEDS: DULoxetine HCL 60 MG CAPSULE.DR PO (09:15)
[2020-08-31] MEDS: POTASSIUM CHLORIDE 10 MEQ TABLET.ER PO (09:15)
[2020-08-31] MEDS: HYDROCORTISONE 1% 30 GM CREAM 1 APPLIC TOPICAL (09:16)
[2020-08-31] MEDS: NYSTATIN OINTMENT 15 GM TUBE 1 APPLIC TOPICAL (09:16)
[2020-08-31] MEDS: PANTOPRAZOLE SODIUM IV 40 MG VIAL IV PUSH (09:16)
[2020-08-31] MEDS: MORPHINE SULFATE (*CRX) 4 MG/ML INJ IV PUSH ×2 (10:38→13:31)
[2020-08-31 11:28] LABS: Partial Thromboplastin Time 26.2 SECONDS (22.3-36.8)
--- NOTE | 2020-08-31 12:31 | PM.DS ---
DS: Admitting Diagnosis Admitting Diagnosis Admitting Diagnosis: Leg swelling DS: Discharge Diagnosis Discharge Diagnosis (1) Deep vein thrombosis of lower extremity: Code(s): I82.409 - Acute embolism and thrombosis of unspecified deep veins of unspecified lower extremity Status: Acute Assessment and Plan: Patient is a 74-year-old man with a history of atrial fibrillation who was on anticoagulation in 2019 but then developed a GI bleed required blood transfusions and since has been discontinued on anticoagulation, who presented to the emergency room from his [facility] with right leg swelling, pain and redness. Vitals showed he was afebrile, non tachycardic, normal respiratory rate and oxygenation on room air, normal blood pressure 132/75. Labs showed normocytic anemia with a hemoglobin of 12, hematocrit 38%, normal platelet count, normal coag panel, slight hyponatremia at 133 which appears to be chronic, normal renal function, normal LFTs, elevated CRP is 7.4, elevated BNP at 1990, elevated lipase at 1448. Urinalysis showing trace leukocyte esterase and WBCs 7-9. urine culture pending. Venous Doppler was completed of right lower leg due to increased redness and swelling which found DVT throughout the visualized right lower extremity veins. CTA of the chest was completed showing no central pulmonary embolus, sensitivity for subsegmental emboli limited by respiratory motion artifact. He was also found to have a pancreatic head mass with multiple liver lesions, most consistent with pancreatic adenocarcinoma and liver metastases. 6 mm nodule of the left upper lobe of the lungs which could be benign verses metastatic. The ER provider called [facility] and talked to a vascular surgeon who recommended the patient to be started on IV heparin, and start on anticoagulation and follow-up with vascular surgery as an outpatient. The patient was admitted into the hospital on a heparin drip, consult to Oncology Dr. Francis, and monitoring of blood counts. During the patient's hospitalization, the oncologist Dr. Francis discussed with the patient and his about diagnosis of possible pancreatic cancer with Mets to the liver which would mean he has stage IV. He discussed the risks and benefits of obtaining a biopsy. The patient and both agreed to undergo a biopsy. The patient was on the heparin drip until biopsy was performed. After the biopsy was completed I talked with the radiologist to recommended in normal patients they restart their home anticoagulation 24 hours after a biopsy But some people in the acute setting who have a need for anticoagulation sooner, can be restarted in 6 hours. I discussed this with Dr. Francis who recommended starting heparin drip in 6 hours after his biopsy. During his biopsy the patient had right upper quadrant pain and had a CT scan completed at that time showing no acute findings and the patient's pain was out of proportion to the CT evidence, When I talked to the radiologist Who performed the intervention. the risks and benefits were explained to the patient about bleeding with being put back on the heparin drip verses putting him on nothing for 24 hours. The patient understands and agrees with the plan of IV heparin drip. this morning 08/31/2020 the patient continued to have some right upper quadrant abdominal pain which he rated 8/10. The nurse told me he received IV morphine last night and then slept through the night without any issues. The patient continued to have belching issues but also passing flatulence. On examination the patient's abdomen was more distended and tender. A stat CTA of his abdomen pelvis was completed which showed Interval development of mild intra-abdominal free fluid, including a minimal amount adjacent to the liver, a greater amount adjacent to the spleen and in the left paracolic and to a lesser extent right paracolic gutters. There is suggestion of some irregularity a
[2020-08-31 13:16] LABS: EDCOVIDSCREEN Negative (Negative)
[2020-09-02 07:25] LABS: CA 19-9 18 U/mL (<34)
== END 2020-08-31 14:47 | disposition hospice, inpatient (51) | DRG 300 ==
LOC: ANHED 16:33 → ANHIMU 16:59
PROVIDERS: Emergency Medicine Emergency Medical Services; Internal Medicine; Internal Medicine Hematology & Oncology; Nurse Practitioner; Physician Assistant; Admitting Provider Internal Medicine; Emergency Provider Emergency Medicine; PCP Family Medicine; Visit Provider Family Medicine
DX: I82.401 Acute embolism and thrombosis of unspecified deep veins of right lower extremity (principal); C78.7 Secondary malignant neoplasm of liver and intrahepatic bile duct; Z68.43 Body mass index [BMI] 50.0-59.9, adult; K56.0 Paralytic ileus; C80.1 Malignant (primary) neoplasm, unspecified; Z66 Do not resuscitate; R58 Hemorrhage, not elsewhere classified; R10.11 Right upper quadrant pain; E66.01 Morbid (severe) obesity due to excess calories; Z20.822 Contact with and (suspected) exposure to COVID-19; K86.89 Other specified diseases of pancreas; I48.91 Unspecified atrial fibrillation; K21.9 Gastro-esophageal reflux disease without esophagitis; I11.0 Hypertensive heart disease with heart failure; I50.9 Heart failure, unspecified; J45.909 Unspecified asthma, uncomplicated; E03.9 Hypothyroidism, unspecified; G47.33 Obstructive sleep apnea (adult) (pediatric); Z79.899 Other long term (current) drug therapy; Z88.2 Allergy status to sulfonamides; Z95.0 Presence of cardiac pacemaker; Z86.711 Personal history of pulmonary embolism
CPT/HCPCS: 36415; 47000; 71045; 71275; 74177; 76942; 80048; 80053; 81001; 82948; 83605; 83690; 83735; 83880; 84443; 85014; 85018; 85025; 85027; 85610; 85730; 86140; 86301; 87086; 87088; 87426; 88307; 88313; 88342; 93005; 93971; 96365; 96366; 96375; 96376; 99285; A9270; C8929; C9113; C9803; G0378; J1644; J2270; Q9967